=== PATIENT | male | born 1965 | race Caucasian/White ===

== ENCOUNTER 2021-06-27 00:40 | Day surgery (SDC) | payer MEDICARE, MEDICAID, SELFPAY ==
[2021-06-14 15:15] VITALS: BMI 36.6
[2021-06-27 12:39] VITALS: BP 129/92; PULSE 100; RESP 18; TEMP 36.1; O2SAT 100
[2021-06-27] MEDS: LACTATED RINGERS 1,000 ML 150 ML IV CONT (12:45)
--- NOTE | 2021-06-27 12:50 | WPDANESEPPF ---
Anes - Initial Pre Proc Eval Procedure: Operation Date: 06/27/21 14:00 Proposed Procedures p Colonoscopy - Melecio Paredes MD Date/Time: 06/27/21 12:50 Surgeon: Melecio Paredes MD Pre Op Diagnosis: diverticulitis Patient Data Age: 56 Gender: M Height: 1.65 m Weight: 96.4 kg Last Vital Signs Temp 97.0 F L 06/27/21 12:39 Pulse 100 06/27/21 12:39 Resp 18 06/27/21 12:39 BP 129/92 H 06/27/21 12:39 Pulse Ox 100 06/27/21 12:39 Allergies Allergy/AdvReac Type Severity Reaction Status Date / Time No Known Allergies Allergy Verified 06/27/21 12:38 Home Medications Medication Instructions Recorded Confirmed Type amlodipine 5 mg tablet 5 mg PO DAILY 05/18/21 06/14/21 History diclofenac potassium 50 mg tablet 50 mg PO BID 05/18/21 06/14/21 History folic acid 1 mg tablet 1 mg PO DAILY 05/18/21 06/14/21 History methotrexate sodium 10 mg tablet 10 mg PO WEEKLY 05/18/21 06/14/21 History secukinumab 150 mg/mL subcutaneous 150 mg SUBCUT ONCE 05/18/21 06/14/21 History syringe sumatriptan succinate 50 mg tablet 50 mg PO ONCE 05/18/21 06/14/21 History levofloxacin 750 mg PO DAILY 06/14/21 06/14/21 History neomycin-polymyxin B-dexameth 3.5 drp EACH EYE PRN 06/14/21 06/14/21 History [Maxitrol] Patient hx anesthesia problems: none Family hx anesthesia problems: none Results Review: All pre-operative results and documents have been reviewed as part of the pre-operative evaluation. [facility] Past Medical History Medical History (Updated 05/18/21 @ 11:50 by Melecio Paredes MD) Arthritis Arthritis with psoriasis Migraine Social History Social History (Updated 05/18/21 @ 11:32 by Lauren Marx CMA) Smoking status: Current every day smoker Tobacco type: e-cigarettes/vaping Alcohol intake: never Substance use: never Substance use type: does not use Living arrangements: alone Spiritual care concerns: No Anes - Eval Final PreProcedure Day of Procedure 06/27/21 12:50 Patient weight: obese Heart: regular rate and rhythm Lungs: clear to auscultation Airway: Mallampati scale class III Neurological: alert and oriented Last oral intake: >/= 8 hours ASA classification: III Emergent: no Anesthetic plan: proceed Anesthesia type and monitoring: general GIVS and standard monitoring Results Review: All pre-operative results and documents have been reviewed as part of the pre-operative evaluation. Informed Consent: The patient's anesthetic plan and its attendant risks and benefits were discussed with the patient/family/POA. Questions were solicited and answers provided to the satisfaction of the patient/family/POA.
--- NOTE | 2021-06-27 13:31 | PM.HPGS ---
History of Present Illness History of Present Illness Consent: Risks, benefits, and alternatives have been discussed and questions answered. Patient agrees to proceed with procedure. Chief complaint: diverticulitis Narrative: Denis Brown is a 56 year old male with previous episode of diverticulitis treated medically, never had colonoscopy Review of Systems Constitutional: Constitutional: Denies headache(s) and Denies weakness Eyes: Eyes: Denies blurry vision ENT: Reports Normal hearing present, Denies headache(s) and Denies neck pain Cardiovascular: Cardiovascular: Denies chest pain and Denies dyspnea Respiratory: Respiratory: Denies dyspnea Gastrointestinal: Gastrointestinal: Reports no additional gastrointestinal complaints Genitourinary: Genitourinary: Denies dysuria Musculoskeletal: Musculoskeletal: Denies neck pain Integumentary/Breasts: Skin/Breast: Denies dry skin Neurologic: Reports Normal hearing present, Denies headache(s) and Denies weakness Psychiatric: Psychiatric: Denies anxiety Endocrine: Endocrine: Denies change in body appearance Hematologic/Lymphatic: Hematologic/Lymphatic: Denies easy bleeding Allergic/Immunologic: Allergic/Immunologic: Denies urticaria PMFSH Past Medical History Medical History (Updated 06/27/21 @ 13:32 by Melecio Paredes MD) Arthritis Arthritis with psoriasis Diverticulitis Migraine Social History Social History (Updated 05/18/21 @ 11:32 by Lauren Marx CMA) Smoking status: Current every day smoker Tobacco type: e-cigarettes/vaping Alcohol intake: never Substance use: never Substance use type: does not use Living arrangements: alone Spiritual care concerns: No Meds Home Medications and Allergies Home Medications Medication Instructions Recorded Confirmed Type amlodipine 5 mg tablet 5 mg PO DAILY 05/18/21 06/14/21 History diclofenac potassium 50 mg tablet 50 mg PO BID 05/18/21 06/14/21 History folic acid 1 mg tablet 1 mg PO DAILY 05/18/21 06/14/21 History methotrexate sodium 10 mg tablet 10 mg PO WEEKLY 05/18/21 06/14/21 History secukinumab 150 mg/mL subcutaneous 150 mg SUBCUT ONCE 05/18/21 06/14/21 History syringe sumatriptan succinate 50 mg tablet 50 mg PO ONCE 05/18/21 06/14/21 History levofloxacin 750 mg PO DAILY 06/14/21 06/14/21 History neomycin-polymyxin B-dexameth 3.5 drp EACH EYE PRN 06/14/21 06/14/21 History [Maxitrol] Allergies Allergy/AdvReac Type Severity Reaction Status Date / Time No Known Allergies Allergy Verified 06/27/21 12:38 Vital Signs Vital Signs - 24 hr 06/27/21 12:39 Temperature 97.0 F L Pulse Rate 100 Respiratory Rate 18 Blood Pressure 129/92 H Pulse Oximetry 100 Exam Const: General: comfortable and no acute distress HENMT: General nose exam: Normal nares present Eyes: General: appearance normal, both eyes and all related structures Neck: Neck: no JVD Resp: Auscultation: clear to auscultation bilaterally Cardio: Rate: regular rate Rhythm: regular rhythm GI: Inspection: non-distended GI Palp: Yes Soft to palpation Skin: General skin exam: normal color Neuro: General: gait normal Speech: normal speech Extrem: General: normal to inspection Psych: Mental Status: mental status grossly normal Assessment and Plan Assessment and plan (1) Diverticulitis: Code(s): K57.92 - Diverticulitis of intestine, part unspecified, without perforation or abscess without bleeding Status: Acute Assessment and Plan: resolved, needs colonoscopy
[2021-06-27 13:52] VITALS: BP 113/75; PULSE 90; RESP 20; O2SAT 94
[2021-06-27 14:02] VITALS: BP 118/73; PULSE 79; RESP 16; O2SAT 94
[2021-06-27 14:12] VITALS: BP 131/93; PULSE 83; RESP 18; O2SAT 100
== END 2021-06-27 14:22 | disposition home or self-care (01) ==
PROVIDERS: PCP Emergency Medicine; Visit Provider Internal Medicine Gastroenterology
PROC: 0DJD8ZZ Inspection of Lower Intestinal Tract, Via Natural or Artificial Opening Endoscopic (ICD-10-PCS; CPT 45378; principal; 2021-06-27 14:00)
DX: Z12.11 Encounter for screening for malignant neoplasm of colon (principal); K57.30 Diverticulosis of large intestine without perforation or abscess without bleeding; K64.8 Other hemorrhoids; Z87.19 Personal history of other diseases of the digestive system; L40.9 Psoriasis, unspecified; F17.290 Nicotine dependence, other tobacco product, uncomplicated; E66.9 Obesity, unspecified; Z68.35 Body mass index [BMI] 35.0-35.9, adult
CPT/HCPCS: G0121; J2704; J7120